=== PATIENT | female | born 1970 | race Caucasian/White ===

== ENCOUNTER 2016-06-06 16:24 | Emergency (ER) | payer OTHER ==
[2016-06-06 17:13] VITALS: BP 107/71
--- NOTE | 2016-06-06 18:52 | UC ---
Throat Pain/Nasal Alejandro HPI - HPI Summary HPI Summary: about 6 week history of sore throat with some dysphagia, worse this week with onset of URI. Has had indirect laryngoscopy in Dec--normal. Is on ranitidine for GERD after failing PPI, has appointment pending with GI for 24 hour probe. Progressive laryngitis today. - History of Current Complaint Chief Complaint: UCGeneralIllness Stated Complaint: SORE THROAT Time Seen by Provider: 06/06/16 18:51 Hx Obtained From: Patient Hx Last Menstrual Period: 05/14/16 ?: No Onset/Duration: Gradual Onset, Lasting Weeks Severity: Moderate Cough: Nonproductive Associated Signs & Symptoms: Positive: Dysphagia, Hoarseness, Nasal Discharge - Epiglottits Risk Factors Epiglottis Risk Factors: Negative - Allergies/Home Medications Allergies/Adverse Reactions: Allergies Allergy/AdvReac Type Severity Reaction Status Date / Time No Known Allergies Allergy Verified 06/06/16 17:13 Home Medications: Home Medications Multiple Vitamin [Multi Vitamin] 1 tab PO DAILY 06/06/16 [History Confirmed 06/21] Ranitidine HCl [Zantac] 150 mg PO BID 06/06/16 [History Confirmed 06/06/16] PMH/Surg Hx/FS Hx/Imm Hx - Additional Past Medical History Additional PMH: Mychal's thyroiditis. GI/ History Of: Reports: Gastroesophageal Reflux - Surgical History Surgical History: Yes Surgery Procedure, Year, and Place: D&C 2012 - Family History Known Family History: Positive: Other - no family history of gastrointestinal disorders. - Social History Occupation: Employed Full-time - TA in Kindergarten class. Lives: With Family Alcohol Use: None Substance Use Type: None Smoking Status (MU): Never Smoked Tobacco Review of Systems Constitutional: Fatigue ENT: Sore Throat Respiratory: Cough Gastrointestinal: Other - off and on reflux symptoms despite ranitidine. All Other Systems Reviewed And Are Negative: Yes Physical Exam Triage Information Reviewed: Yes Appearance: Ill-Appearing - looks mildly unwell Vital Signs: Initial Vital Signs Temp 99.1 F 06/06/16 17:03 Pulse 90 06/06/16 17:03 Resp 16 06/06/16 17:03 BP 107/71 06/06/16 17:03 Pulse Ox 100 06/06/16 17:03 Eyes: Positive: Conjunctiva Clear ENT: Positive: Pharyngeal erythema. Negative: Tonsillar swelling, Tonsillar exudate Neck: Positive: Supple, Nontender, No Lymphadenopathy, Other: - diffusely enlarged thyroid Respiratory: Positive: Lungs clear, Normal breath sounds Cardiovascular: Positive: RRR, No Murmur Abdomen Description: Positive: Nontender, No Organomegaly, Soft Musculoskeletal Exam: Normal Neurological Exam: Normal Psychological Exam: Normal Skin Exam: Normal Throat Pain/Nasal Course/Dx - Course Course Of Treatment: pharyngitis, URI. reflux esophagitis - Differential Dx/Diagnosis Differential Diagnosis/HQI/PQRI: Laryngitis, Otitis Media, Tonsillitis Provider Diagnoses: reflux esophagitis and URI/laryngitis Discharge - Discharge Plan Condition: Stable Disposition: HOME Patient Education Materials: Gastroesophageal Reflux Disease (ED) Additional Instructions: As discussed, continue symptomatic treatment for respiratory illness, which is consistent with virus. You have a gi visit scheduled, but meantime, try elevating the head of your bed AND try an antacid such as Gaviscon, chewing 2 before meals and 2 before bed.
== END 2016-06-06 19:19 | disposition home or self-care (01) ==
LOC: UCCORT 16:24
DX: K21.0 Gastro-esophageal reflux disease with esophagitis (principal); J06.9 Acute upper respiratory infection, unspecified; J04.0 Acute laryngitis
CPT/HCPCS: 87651; 99201; G0463

== ENCOUNTER 2017-04-01 18:58 | Emergency (ER) | payer OTHER ==
--- NOTE | 2017-04-01 21:10 | UC ---
Throat Pain/Nasal Alejandro HPI - HPI Summary HPI Summary: 46 female presents to with complaints of sore throat, cough that has been ongoing intermittently for the past month. Patient states she last had a fever, body aches and much worse of symptoms on 03/19/17. States since she has had some improvement however cough and sore throat is still lingering. 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 Has been taking tylenol with relief. No headache, difficulty breathing or chest pain. Denies nausea and vomiting. No other complaints. No PMHx. - History of Current Complaint Stated Complaint: SORE THROAT Time Seen by Provider: 04/01/17 20:48 Hx Obtained From: Patient Hx Last Menstrual Period: 05/14/16 Onset/Duration: Sudden Onset, Lasting Weeks, Still Present, Resolved - mostly resolved Severity: Mild Cough: Productive - at times, green/yellow mucus color Associated Signs & Symptoms: Positive: Dysphagia - Allergies/Home Medications Allergies/Adverse Reactions: Allergies Allergy/AdvReac Type Severity Reaction Status Date / Time No Known Allergies Allergy Verified 04/01/17 21:26 PMH/Surg Hx/FS Hx/Imm Hx - Additional Past Medical History Additional PMH: Denies DM HTN and asthma GI/ History: Gastroesophageal Reflux - Surgical History Surgical History: Yes Surgery Procedure, Year, and Place: D&C 2012 - Family History Known Family History: Positive: Other - no family history of gastrointestinal disorders. - Social History Alcohol Use: None Substance Use Type: None Smoking Status (MU): Never Smoked Tobacco - Immunization History Most Recent Influenza Vaccination: did not have Vaccination Up to Date: Yes Review of Systems Constitutional: Fever - resolved 2 weeks ago, Chills, Fatigue - resolved 2 weeks ago ENT: Sore Throat Respiratory: Cough Cardiovascular: Negative Gastrointestinal: Negative Musculoskeletal: Myalgia - resolved 2 week ago All Other Systems Reviewed And Are Negative: Yes Physical Exam Triage Information Reviewed: Yes Appearance: Well-Appearing, No Pain Distress, Well-Nourished Vital Signs: temp 98.9 bp 109/72 resp 16 hr 72 o2 100% Vital Signs Reviewed: Yes Eyes: Positive: Conjunctiva Clear ENT: Positive: Normal ENT inspection, Hearing grossly normal, Pharynx normal, TMs normal, Uvula midline. Negative: Tonsillar swelling, Tonsillar exudate, Hoarse voice Dental: Negative: Percussion Tenderness @, Cervical Lymphadenopathy Neck: Positive: Supple, Nontender, No Lymphadenopathy Respiratory: Positive: Chest non-tender, Lungs clear, Normal breath sounds, No respiratory distress, No accessory muscle use. Negative: Respiratory distress, Stridor, Wheezing Cardiovascular: Positive: RRR, No Murmur, Pulses Normal, Brisk Capillary Refill Musculoskeletal: Positive: Strength Intact Neurological: Positive: Alert Skin Exam: Normal Throat Pain/Nasal Course/Dx - Course Course Of Treatment: strep obtained and negative due to patient preference. appears to have had worsening symptoms flu or strep like a few weeks ago and appears to currently be suffering from lingering viral illness. No concern for pneumonia, mono, influenza or strep currently due to symptoms resolving. No other complaints. Patient is aware of worsening signs and syptoms to watch out for. Symptomatic measures, mucinex d, increase fluid intake, flonase and rest. Tessalon pearls for cough. chloraseptic spray if desired for sore throat. Follow up with PCP. - Differential Dx/Diagnosis Differential Diagnosis/HQI/PQRI: Influenza, Pharyngitis, Tonsillitis, Other - rhinosinusitis Provider Diagnoses: rhinosinusitis Discharge - Discharge Plan Condition: Stable Disposition: HOME Prescriptions: Benzonatate [TESSALON 200 MG CAP] 200 mg PO TID PRN #20 cap PRN Reason: Cough Patient Education Materials: Cold Symptoms (ED) Referrals: Mary Baxter MD [Primary Care Provider] - Additional Instructions: Take mucinex-d to help with congestion. Zicam and chloraseptic spray of the counter to help boost immune system and soothe sore throat. Increase fluid intake, rest. Tessalon pearls to help with cough. Any new or worsening symptoms please seek medical attention promptly, as discussed. Follow up with PCP.
[2017-04-01 21:49] VITALS: BP 109/72
== END 2017-04-01 22:03 | disposition home or self-care (01) ==
LOC: UCCORT 18:58
DX: J32.9 Chronic sinusitis, unspecified (principal); K21.9 Gastro-esophageal reflux disease without esophagitis
CPT/HCPCS: 87651; 99212; G0463